=== PATIENT | female | born 1960 | race Caucasian/White ===

== ENCOUNTER 2018-06-23 10:51 | Outpatient (CLI) | payer OTHER | END 2018-06-23 10:55 | disposition home or self-care (01) | LOC: LAB 10:51 | DX: R79.89 Other specified abnormal findings of blood chemistry (principal); Z51.81 Encounter for therapeutic drug level monitoring ==

== ENCOUNTER 2018-07-09 11:09 | Outpatient (CLI) | payer OTHER ==
[2018-07-13] MEDS ORDERED: BINOSTO70 MG PO (14:33)
[2018-07-13] MEDS ORDERED: HUMALOG100 UNIT/1 (14:34)
[2018-07-13] MEDS ORDERED: LOSARTAN POTASS50 MG PO (14:34)
[2018-07-13] MEDS ORDERED: SYNTHROID150 MCG PO (14:34)
[2018-07-13] MEDS ORDERED: SINGULAIR10 MG PO (14:34)
[2018-07-13] MEDS ORDERED: HUMULIN N100 UNIT/2 IM (14:35)
[2018-07-13] MEDS ORDERED: NORVASC5 MG PO (14:36)
[2018-07-13] MEDS ORDERED: LIPITOR20 MG PO (14:36)
[2018-07-13] MEDS ORDERED: SPIRIVA RESPIMAT4 G1 IH (14:36)
[2018-07-13] MEDS ORDERED: GABAPENTIN100 MG PO (14:36)
[2018-07-13] MEDS ORDERED: HYDRALAZINE HCL25 MG PO (14:37)
[2018-07-13] MEDS ORDERED: FLOVENT DISKUS50 MCG IH (14:37)
[2018-07-13] MEDS ORDERED: LATANOPROST2.5 ML OP (14:38)
[2018-07-13] MEDS ORDERED: ALDACTONE25 MG PO (14:38)
[2018-07-13] MEDS ORDERED: BREO ELLIPTA 21 EACH IH (14:39)
== END 2018-07-09 11:19 | disposition home or self-care (01) ==
LOC: RAD 11:09
DX: C18.7 Malignant neoplasm of sigmoid colon (principal); R59.0 Localized enlarged lymph nodes; D37.4 Neoplasm of uncertain behavior of colon; K92.1 Melena

== ENCOUNTER 2018-07-15 07:34 | Inpatient (IN) | payer OTHER ==
[~2018-07-15] VITALS: Ht 160 cm; Wt 101.6 kg
[~2018-07-15 07:34] MED LIST: ALDACTONE25 MG PO; BINOSTO70 MG PO; BREO ELLIPTA 21 EACH IH; FLOVENT DISKUS50 MCG IH; GABAPENTIN100 MG PO; HUMALOG100 UNIT/1; HUMULIN N100 UNIT/2 IM; HYDRALAZINE HCL25 MG PO; LATANOPROST2.5 ML OP; LIPITOR20 MG PO; LOSARTAN POTASS50 MG PO; NORVASC5 MG PO; SINGULAIR10 MG PO; SPIRIVA RESPIMAT4 G1 IH; SYNTHROID150 MCG PO
[2018-07-25] MEDS ORDERED: INTESTINEX680 M1 PO (14:40)
[2018-07-25] MEDS ORDERED: LEVAQUIN750 MG PO (14:40)
[2018-07-25] MEDS ORDERED: TYLENOL EXTRA500 MG PO (14:41)
== END 2018-07-25 15:17 | disposition home or self-care (01) | DRG 329 ==
LOC: O/R 07-16 10:06 → SURG 07-16 14:01 → SURH 07-16 20:36
PROVIDERS: Surgery
PROC: 07TC4ZZ Resection of Pelvis Lymphatic, Percutaneous Endoscopic Approach (ICD-10-PCS; 2018-07-16)
PROC: 0DJD8ZZ Inspection of Lower Intestinal Tract, Via Natural or Artificial Opening Endoscopic (ICD-10-PCS; 2018-07-16)
PROC: 4A033R1 Measurement of Arterial Saturation, Peripheral, Percutaneous Approach (ICD-10-PCS; 2018-07-16)
PROC: 3E0F7GC Introduction of Other Therapeutic Substance into Respiratory Tract, Via Natural or Artificial Opening (ICD-10-PCS; 2018-07-16)
PROC: 5A09457 Assistance with Respiratory Ventilation, 24-96 Consecutive Hours, Continuous Positive Airway Pressure (ICD-10-PCS; 2018-07-16)
PROC: 0DTN4ZZ Resection of Sigmoid Colon, Percutaneous Endoscopic Approach (ICD-10-PCS; principal; 2018-07-16 15:45)
PROC: BW24ZZZ Computerized Tomography (CT Scan) of Chest and Abdomen (ICD-10-PCS; 2018-07-21)
DX: C18.7 Malignant neoplasm of sigmoid colon (principal); J18.9 Pneumonia, unspecified organism; J44.1 Chronic obstructive pulmonary disease with (acute) exacerbation; J95.89 Other postprocedural complications and disorders of respiratory system, not elsewhere classified; J98.11 Atelectasis; R59.0 Localized enlarged lymph nodes; E66.01 Morbid (severe) obesity due to excess calories; G47.33 Obstructive sleep apnea (adult) (pediatric); F17.210 Nicotine dependence, cigarettes, uncomplicated; R09.02 Hypoxemia; E03.8 Other specified hypothyroidism; I10 Essential (primary) hypertension; E11.9 Type 2 diabetes mellitus without complications; E78.4 Other hyperlipidemia; M79.7 Fibromyalgia

== ENCOUNTER 2018-07-15 11:50 | Day surgery (SDC) | payer OTHER | END 2018-07-15 16:00 | disposition home or self-care (01) | LOC: AMB-ENDOS 11:50 | DX: C18.7 Malignant neoplasm of sigmoid colon (principal); K92.1 Melena ==

== ENCOUNTER 2019-07-11 07:36 | Outpatient (CLI) | payer OTHER ==
[~2019-07-11 07:36] MED LIST changes: +INTESTINEX680 M1 PO; +LEVAQUIN750 MG PO; +TYLENOL EXTRA500 MG PO
== END 2019-07-11 07:40 | disposition home or self-care (01) ==
LOC: TOM 07:36
DX: C18.7 Malignant neoplasm of sigmoid colon (principal); R59.0 Localized enlarged lymph nodes; D37.4 Neoplasm of uncertain behavior of colon; K92.1 Melena